=== PATIENT | male | born 1950 | race Caucasian/White ===

== ENCOUNTER 2022-11-17 13:49 | Day surgery (SDC) | payer MEDICARE, BC ==
[2022-11-17] VITALS (7 sets, daily range): BP systolic 99–133; BP diastolic 54–70
[~2022-11-17] VITALS: Ht 177.8 cm; Wt 92.8 kg
[~2022-11-17 13:49] MED LIST: ASPI-611 PO; ATOR20TA66 PO; CARV-49 PO; FURO-150 PO; POTA-206 PO; SACU1TAB PO
[2022-11-17] MEDS ORDERED: LORazepam 0.5 MG tablet PO PRN (14:10)
[2022-11-17] MEDS ORDERED: diphenhydrAMINE 25mg capsule PO PRN (14:10)
[2022-11-17] MEDS ORDERED: normal saline 1,000 ML IV SCH (14:10)
[2022-11-17] MEDS ORDERED: EMPA10TA PO (14:23)
[2022-11-17] MEDS ORDERED: SPIR25TA PO (14:23)
[2022-11-17] MEDS ORDERED: FURO-150 PO (14:23)
[2022-11-17] MEDS ORDERED: AMIO200T61 PO (14:23)
[2022-11-17 14:53] LABS: BASOPHILS # (AUTO) 0.1 X10'3 (0-0.2); BASOPHILS % (AUTO) 0.7 % (0-1); EOSINOPHILS # (AUTO) 0.1 X10'3 (0-0.9); EOSINOPHILS % (AUTO) 1.2 % (0-6); HEMATOCRIT 44.1 % (42.0-52.0); HEMOGLOBIN 14.3 g/dl (14.0-17.9); LYMPHOCYTES # (AUTO) 1.6 X10'3 (1.1-4.8); LYMPHOCYTES % (AUTO) 19.5 % (21-51); MEAN CORPUSCULAR HEMOGLOBIN 30.7 PG (27.0-31.0); MEAN CORPUSCULAR HGB CONC 32.5 g/dL (33.0-36.5); MEAN CORPUSCULAR VOLUME 94.4 FL (78-98); MEAN PLATELET VOLUME 9.5 FL (7.4-10.4); MONOCYTES # (AUTO) 0.6 X10'3 (0-0.9); NEUTROPHILS # (AUTO) 5.9 X10'3 (1.8-7.7); NEUTROPHILS % (AUTO) 71.6 % (42-75); PLATELET COUNT 180 X10'3 (140-440); RED BLOOD COUNT 4.67 X10'6 (4.70-6.10); RED CELL DISTRIBUTION WIDTH 14.2 % (11.5-14.5); WHITE BLOOD COUNT 8.2 X10'3 (4.5-11.0)
[2022-11-17 15:01] LABS: ANION GAP 7 (8-16); BLOOD UREA NITROGEN 22 MG/DL (7-18); BUN/CREATININE RATIO 21.4 (5.4-32.0); CALCIUM 8.7 MG/DL (8.5-10.1); CHLORIDE 108 MMOL/L (99-107); CREATININE 1.03 MG/DL (0.60-1.10); GLUCOSE 94 MG/DL (70-104); POTASSIUM 4.5 MMOL/L (3.5-5.1); SODIUM 140 MMOL/L (135-145); TOTAL CARBON DIOXIDE 24.8 MMOL/L (24-32); eGFR 71 ML/MIN
[2022-11-17 15:04] LABS: APTT 27 SECONDS (22-32)
[2022-11-17] MEDS ORDERED: verapamil 2.5 mg/ml inj IV ONE (15:54)
[2022-11-17] MEDS ORDERED: midazolam 1 mg/ML 2ml injection ONE (15:54)
[2022-11-17] MEDS ORDERED: heparin 25,000 UNIT/250ml bag 250 ML IV ONE (15:54)
[2022-11-17] MEDS ORDERED: fentaNYL/PF 50MCG/1 ML 2ML syringe ONE (15:54)
[2022-11-17] MEDS ORDERED: heparin 1,000unit/ml 10ml vial 10 ML ONE (15:54)
[2022-11-17] MEDS ORDERED: LIDOcaine 1% (10mg/ml) 2ml vial ONE (15:54)
[2022-11-17] MEDS ORDERED: nitroGLYCERIN-Tridil 50MG/D5W 250 ML IV ONE (15:55)
[2022-11-17] MEDS ORDERED: iohexol 350MG/ML 100ml bottle IV ONE (15:55)
[2022-11-17] MEDS ORDERED: HYDROcodone/acetaminophen 10/325mg tab PO PRN (17:20)
[2022-11-17] MEDS ORDERED: HYDROcodone/acetaminophen 5mg/325mg tablet PO PRN (17:20)
== END 2022-11-17 19:10 | disposition home or self-care (01) ==
LOC: SSTAY O 13:49
PROVIDERS: ATTEND Student in an Organized Health Care Education/Training Program
DX: I49.01 Ventricular fibrillation (principal); I25.10 Atherosclerotic heart disease of native coronary artery without angina pectoris; I11.0 Hypertensive heart disease with heart failure; I50.9 Heart failure, unspecified; E78.5 Hyperlipidemia, unspecified; E11.9 Type 2 diabetes mellitus without complications; F10.10 Alcohol abuse, uncomplicated; Z95.810 Presence of automatic (implantable) cardiac defibrillator; Z79.82 Long term (current) use of aspirin; Z79.84 Long term (current) use of oral hypoglycemic drugs; Z79.899 Other long term (current) drug therapy; Z87.891 Personal history of nicotine dependence
CPT/HCPCS: 36415; 80048; 85025; 85610; 85730; 93005; 93458; 99152; C1729; C1769; C1894; J1644; J2250; J3010; J3490; J7030; Q0163; Q9967; 99153; A6258; A6402

== ENCOUNTER 2023-12-21 09:13 | Emergency (ER) | payer MEDICARE, BC ==
[~2023-12-21] VITALS: Ht 177.8 cm; Wt 88.6 kg
[~2023-12-21 09:13] MED LIST changes: +AMI200T PO; +EMPA10TA PO; -POTA-206 PO; +SPIR25TA PO
[2023-12-21 09:20] VITALS: TEMP 97.5
[2023-12-21 10:03] LABS: BASOPHILS # (AUTO) 0.1 X10'3 (0-0.2); BASOPHILS % (AUTO) 0.7 % (0-1); EOSINOPHILS # (AUTO) 0.1 X10'3 (0-0.9); EOSINOPHILS % (AUTO) 0.9 % (0-6); HEMATOCRIT 45.7 % (42.0-52.0); HEMOGLOBIN 15.1 g/dl (14.0-17.9); LYMPHOCYTES # (AUTO) 1.6 X10'3 (1.1-4.8); LYMPHOCYTES % (AUTO) 19.8 % (21-51); MEAN CORPUSCULAR HEMOGLOBIN 31.9 PG (27.0-31.0); MEAN CORPUSCULAR VOLUME 96.7 FL (78-98); MEAN PLATELET VOLUME 9.3 FL (7.4-10.4); MONOCYTES # (AUTO) 0.7 X10'3 (0-0.9); MONOCYTES % (AUTO) 8.3 % (2-12); NEUTROPHILS # (AUTO) 5.6 X10'3 (1.8-7.7); NEUTROPHILS % (AUTO) 70.3 % (42-75); PLATELET COUNT 201 X10'3 (140-440); RED BLOOD COUNT 4.73 X10'6 (4.70-6.10); RED CELL DISTRIBUTION WIDTH 14.3 % (11.5-14.5)
[2023-12-21 10:39] LABS: ALANINE AMINOTRANSFERASE 22 U/L (12-78); ALBUMIN 4.2 G/DL (3.4-5.0); ALBUMIN/GLOBULIN RATIO 1.4 (1.1-1.5); ALKALINE PHOSPHATASE 41 IU/L (46-116); ANION GAP 10 (8-16); ASPARTATE AMINO TRANSFERASE 16 U/L (10-37); BILIRUBIN,TOTAL 1.6 MG/DL (0.1-1.0); BLOOD UREA NITROGEN 17 MG/DL (7-18); CALCIUM 8.9 MG/DL (8.5-10.1); CHLORIDE 107 MMOL/L (99-107); CREATININE 1.31 MG/DL (0.60-1.10); GLUCOSE 104 MG/DL (70-104); POTASSIUM 4.6 MMOL/L (3.5-5.1); SODIUM 144 MMOL/L (135-145); TOTAL CARBON DIOXIDE 27.3 MMOL/L (24-32); TOTAL PROTEIN 7.2 G/DL (6.4-8.2); eCRCL 51 ML/MIN; eGFR 53 ML/MIN
[2023-12-21 10:47] LABS: PRO BRAIN NATRIURETIC PEPTIDE 8352 PG/ML (0-125)
[2023-12-21] MEDS ORDERED: furosemide 10 MG/1 ML 10ml inj IV ONE (11:10)
[2023-12-21] MEDS: furosemide 40mg/4ml inj IV ONE (11:18)
[2023-12-21 12:47] VITALS: BP 111/76; PULSE 89; RESP 16; O2SAT 98
== END 2023-12-21 13:04 | disposition home or self-care (01) ==
LOC: ER 09:13
DX: I11.0 Hypertensive heart disease with heart failure (principal); I50.9 Heart failure, unspecified; Z79.899 Other long term (current) drug therapy; Z79.82 Long term (current) use of aspirin
CPT/HCPCS: 36415; 71045; 80053; 83880; 84484; 85025; 93005; 96374; 99285; J1940